=== PATIENT | female | born 1990 | race Caucasian/White ===

== ENCOUNTER → 2017-04-21 | Outpatient (CLI) | payer BC | LOC: M LAB 16:23 | PROVIDERS: ATTEND Physician Assistant Medical | DX: R10.11 Right upper quadrant pain (principal) ==

== ENCOUNTER → 2017-05-26 | Outpatient (CLI) | payer BC ==
[~2017-05-26] VITALS: Ht 157.5 cm; Wt 61.2 kg
[~2017-05-26] MED LIST: ALL10TAB27 PO; AVIATAB PO; FLON1SPR; LIDOCAINE 2% INJ 100 MG/5 ML SDV (FOR ANES.) As Ordered ONE; MAXA10TA14 PO; MULT1TAB10 PO; NS 1,000 ML IV ONE; PROM25TA PO; PROPOFOL 200 MG/20 ML VIAL As Ordered ONE; RANI150T PO
--- NOTE | 2017-05-26 15:47 | ROOR ---
Patient Name: Rose Arboleda Procedure Date: 05/26/2017 3:27 PM Date of : 1990 Age: 27 Room: [facility] Gender: Female Note Status: Finalized Procedure: Upper GI endoscopy Indications: Abdominal pain in the right upper quadrant, Nausea Providers: Jamie CHAVARRIA MD Referring MD: HUI Castillo Requesting Provider: Medicines: Monitored Anesthesia Care Complications: No immediate complications. Procedure: Pre-Anesthesia Assessment: - The heart rate, respiratory rate, oxygen saturations, blood pressure, adequacy of pulmonary ventilation, and response to care were monitored throughout the procedure. The Endoscope was introduced through the mouth, and advanced to the third part of duodenum. The upper GI endoscopy was accomplished without difficulty. The patient tolerated the procedure well. Findings: The esophagus was normal. The stomach was normal. The examined duodenum was normal. Impression: - Normal esophagus. - Normal stomach. - Normal examined duodenum. - No specimens collected. Recommendation: - Continue present medications. - Observe patient's clinical course. - Consider trial on PRN dicyclomine or hyoscyamine as needed. Script sent to your pharmacy Jamie Chavarria MD Jamie CHAVARRIA MD 05/26/2017 3:46:33 PM This report has been signed electronically. Number of Addenda: 0 Note Initiated On: 05/26/2017 3:27 PM Estimated Blood Loss: Estimated blood loss: none.
[2017-05-26 16:07] VITALS: BP 110/71
== END | disposition home or self-care (01) ==
LOC: M OPP 14:11
PROVIDERS: ATTEND Internal Medicine Gastroenterology
DX: R10.11 Right upper quadrant pain (principal); R11.0 Nausea; R12 Heartburn; G43.909 Migraine, unspecified, not intractable, without status migrainosus; Z86.79 Personal history of other diseases of the circulatory system; Z79.899 Other long term (current) drug therapy; Z80.52 Family history of malignant neoplasm of bladder

== ENCOUNTER → 2019-01-29 | Outpatient (REF) | payer OTHER ==
[~2019-01-29] MED LIST changes: -ALL10TAB27 PO; +ALL10TAB28 PO; -LIDOCAINE 2% INJ 100 MG/5 ML SDV (FOR ANES.) As Ordered ONE; -NS 1,000 ML IV ONE; -PROM25TA PO; +PROM25TA12 PO; -PROPOFOL 200 MG/20 ML VIAL As Ordered ONE
[2019-02-05 15:31] LABS: HPV HYBRID CAPTURE II Negative (Negative)
== END ==
LOC: M LAB LCGH 14:51
PROVIDERS: ATTEND Nurse Practitioner Adult Health
DX: Z12.4 Encounter for screening for malignant neoplasm of cervix (principal); R87.610 Atypical squamous cells of undetermined significance on cytologic smear of cervix (ASC-US)
CPT/HCPCS: 87624; G0123

== ENCOUNTER → 2021-05-23 | Outpatient (CLI) | payer OTHER ==
[~2021-05-23] MED LIST changes: -ALL10TAB28 PO; +CETI-24 PO
--- NOTE | 2021-05-23 16:12 | REP ---
INDICATION: RT KNEE PAIN. COMPARISON: None. TECHNIQUE: Axial, coronal, and sagittal imaging planes utilized. T1, proton density, and T2 weighted scans are obtained with without fat saturation in the usual fashion. FINDINGS: Cortical and medullary bone signal intensity are normal. No significant joint effusion is seen. There is no evidence of Chang's cyst. Medial and lateral patellar retinacular structures are intact. The anterior and the posterior cruciate ligaments are intact. Patellar and quadriceps tendons are unremarkable. There is no evidence of medial or lateral collateral ligament disruption. No medial or lateral meniscal tear is appreciated. No articular cartilaginous disease is appreciated. IMPRESSION: No evidence of internal derangement seen. <Electronically signed by Patrick Shook > 05/23/21 0249
== END ==
LOC: M RAD 15:14
PROVIDERS: ATTEND Orthopaedic Surgery
DX: M25.561 Pain in right knee (principal)

== ENCOUNTER → 2023-08-23 | Outpatient (REF) | payer OTHER ==
[~2023-08-23] MED LIST changes: -MAXA10TA14 PO; +RIZA10TA64 PO
== END ==
LOC: M SFHCDERM 13:00
PROVIDERS: ATTEND Nurse Practitioner Family
DX: D18.01 Hemangioma of skin and subcutaneous tissue (principal)